=== PATIENT | female | born 1975 | race African-American/Black ===

== ENCOUNTER 2016-06-18 11:44 | Emergency (ER) | payer BC ==
[2016-06-18 12:01] VITALS: BP 100/69
--- NOTE | 2016-06-18 12:10 | UC ---
Throat Pain/Nasal Volodymyr HPI - HPI Summary HPI Summary: St starting about 4 days ago with nasal congestion and PND. Feels like ST is getting worse, also coughing up mucus. No fever or trouble breathing. - History of Current Complaint Chief Complaint: UCRespiratory Stated Complaint: SORE THROAT, AND DARK URINE Time Seen by Provider: 06/18/16 12:04 Hx Obtained From: Patient Hx Last Menstrual Period: 05/19 ?: No Onset/Duration: Gradual Onset, Lasting Days Cough: Sputum Appears - green Associated Signs & Symptoms: Positive: Nasal Discharge. Negative: Fever, Vomiting - Allergies/Home Medications Allergies/Adverse Reactions: Allergies Allergy/AdvReac Type Severity Reaction Status Date / Time Prochlorperazine Allergy Rash Verified 06/07/12 19:57 [From Compazine] Home Medications: Home Medications Biotin 1,000 mcg PO 06/18/16 [History] Calcium 250 mg PO 06/18/16 [History] Ferrous Sulfate [Iron (Ferrous Sulfate)] 50 mg PO 06/18/16 [History] Fluoxetine HCl [Prozac] 40 mg PO 06/18/16 [History] PMH/Surg Hx/FS Hx/Imm Hx Endocrine History Of: Denies: Diabetes Cardiovascular History Of: Denies: Hypertension, Pacemaker/ICD Respiratory History Of: Reports: Asthma GI/ History Of: Denies: Renal Disease - Surgical History Surgical History: Yes Surgery Procedure, Year, and Place: 3 C-SECTS, gastric bypass - Family History Known Family History: Negative: Blood Disorder - Social History Occupation: Employed Full-time Lives: With Family Alcohol Use: None Substance Use Type: None Smoking Status (MU): Never Smoked Tobacco Review of Systems Constitutional: Negative Skin: Negative Eyes: Negative ENT: Sore Throat, Nasal Discharge Respiratory: Cough Cardiovascular: Negative Gastrointestinal: Negative Genitourinary: Negative Motor: Negative Neurovascular: Negative Musculoskeletal: Negative Neurological: Negative Psychological: Negative All Other Systems Reviewed And Are Negative: Yes Physical Exam Triage Information Reviewed: Yes Appearance: Well-Appearing, No Pain Distress, Well-Nourished Vital Signs: Initial Vital Signs Temp 97.9 F 06/18/16 11:57 Pulse 73 06/18/16 11:57 Resp 18 06/18/16 11:57 BP 100/69 06/18/16 11:57 Pulse Ox 100 06/18/16 11:57 Vital Signs Reviewed: Yes Eye Exam: Normal Eyes: Positive: Conjunctiva Clear ENT: Positive: Pharynx normal, Nasal congestion, TMs normal. Negative: Tonsillar swelling Dental Exam: Normal Neck exam: Normal Neck: Positive: Supple, Nontender, No Lymphadenopathy Respiratory Exam: Normal Respiratory: Positive: Chest non-tender, Lungs clear, Normal breath sounds, No respiratory distress, No accessory muscle use Cardiovascular Exam: Normal Cardiovascular: Positive: RRR, No Murmur Musculoskeletal Exam: Normal Neurological Exam: Normal Psychological Exam: Normal Skin Exam: Normal Throat Pain/Nasal Course/Dx - Differential Dx/Diagnosis Provider Diagnoses: URI, likely viral Discharge - Discharge Plan Condition: Stable Disposition: HOME Patient Education Materials: Upper Respiratory Infection (ED) Additional Instructions: Your urine is concentrated, that's why it was dark. I recommend you try to drink extra fluids, and eat watery food such as fruit and soup.
== END 2016-06-18 12:37 | disposition home or self-care (01) ==
LOC: UCEAST 11:44
DX: J06.9 Acute upper respiratory infection, unspecified (principal); Z87.09 Personal history of other diseases of the respiratory system; Z32.02 Encounter for pregnancy test, result negative
CPT/HCPCS: 81002; 81025; 87651; 99211; G0463

== ENCOUNTER 2019-09-30 18:58 | Emergency (ER) | payer OTHER ==
[2019-09-30 19:58] LABS: ABS Eosinophils 0.2 10^3/ul (0-0.6); ABS Lymphocytes 1.4 10^3/ul (1.0-4.8); ABS Monocytes 0.2 10^3/ul (0-0.8); Eosinophil % 4.2 %; Hematocrit 38 % (35-47); Hemoglobin 12.8 g/dL (12.0-16.0); Lymphocyte % 33.6 %; Mean Corpuscular HGB Conc 34 g/dL (31-36); Mean Corpuscular Hemoglobin 31 pg (27-31); Mean Corpuscular Volume 90 fL (80-97); Mean Platelet Volume 9.8 fL (7.4-10.4); Nucleated Red Blood Cells % 0.1; Platelet Count 204 10^3/uL (150-450); Red Blood Count 4.19 10^6 /uL (3.70-4.87); Red Cell Distribution Width 13 % (10-15)
[2019-09-30 20:07] LABS: Urine Appearance Cloudy; Urine Bilirubin Negative (Negative); Urine Blood Negative (Negative); Urine Color Straw; Urine Glucose Negative (Negative); Urine Ketones Negative (Negative); Urine Nitrite Negative (Negative); Urine Protein Negative (Negative); Urine Specific Gravity 1.004 (1.010-1.030); Urine Urobilinogen Negative (Negative)
[2019-09-30 20:17] LABS: ALT 18 U/L (7-52); AST 19 U/L (13-39); Albumin/Globulin Ratio 1.2 (1-3); Alkaline Phosphatase 61 U/L (34-104); Anion Gap 8 mmol/L (2-11); BUN/Creatinine Ratio 15.7 (8-20); Blood Urea Nitrogen 13 mg/dL (6-24); CO2 Carbon Dioxide 25 mmol/L (22-32); Calcium 9.5 mg/dL (8.6-10.3); Chloride 108 mmol/L (101-111); EGFR Non-African American 74.3 (>60); Globulin 3.3 g/dL (2-4); Glucose 84 mg/dL (70-100); Potassium 3.8 mmol/L (3.5-5.0); Sodium 141 mmol/L (135-145); Total Protein 7.3 g/dL (6.4-8.9)
[2019-09-30 20:20] LABS: Urine Benzodiazepine Screen None Detected (None Detect); Urine Opiates Screen None Detected (None Detect)
[2019-09-30 20:27] LABS: Acetaminophen < 15 mcg/mL; Alcohol, S 17 mg/dL (<10); Salicylate < 2.50 mg/dL (<30)
[2019-09-30 20:42] LABS: TSH (Thyroid Stimulating Horm) 1.12 mcIU/mL (0.34-5.60)
[2019-09-30 23:08] VITALS: BP 117/74
== END 2019-09-30 22:45 | disposition home or self-care (01) ==
LOC: ED 18:58

== ENCOUNTER 2022-03-31 10:19 | Observation (INO) ==
[~2022-03-31 10:19] MED LIST: Buffered Lidocaine 1% SYRIN 1 ml INTRADERM ONE; Dexamethasone IV 4 MG/ML VIAL 1 ml VIAL IV SLOW PU ONE; Famotidine IV 10 MG/ML 2 ml VIAL (20 mg) IV ONE; Lactated Ringers 1000 ml BAG 1,000 ML IV SCH
[2022-03-31] MEDS ORDERED: Lidocaine 2% PF 5 ML VIAL ONE ×2 (10:36→11:53)
[2022-03-31] MEDS ORDERED: Famotidine IV 10 MG/ML 2 ml VIAL (20 mg) ONE (10:38)
[2022-03-31] MEDS ORDERED: ceFAZolin 2 GM PREMIX 2 GM/50 ML BAG ONE (10:38)
[2022-03-31] MEDS ORDERED: Dexamethasone IV 4 MG/ML VIAL 1 ml VIAL ONE (10:38)
[2022-03-31] MEDS ORDERED: ROPIVACAINE 5 MG/ML 30 ML BTL (0.5%) ONE (11:47)
[2022-03-31] MEDS ORDERED: fentaNYL 100 mcg/2 ml 50 MCG/ML VIAL ONE ×2 (11:48→15:38)
[2022-03-31] MEDS ORDERED: Midazolam 2 mg/2 ml VIAL 1 mg/ml 2 ml VIAL (2 mg) ONE (11:48)
[2022-03-31] MEDS ORDERED: Ropivacaine 5 MG/ML 20 ML VIAL 0.5% (100 MG) ONE (11:51)
[2022-03-31] MEDS ORDERED: Phenylephrine IV 10 MG/ML 1 ml VIAL ONE (11:53)
[2022-03-31] MEDS ORDERED: Ondansetron 4 mg VIAL 2 MG/ML 2 ml VIAL ONE (13:27)
[2022-03-31] MEDS ORDERED: Propofol 10 MG/ML 20 ML BTL ONE ×3 (13:41→14:22)
[2022-03-31] MEDS ORDERED: Morphine 4 MG/ML VIAL (1 ml) IV PRN (14:11)
[2022-03-31] MEDS ORDERED: fentaNYL 100 mcg/2 ml 50 MCG/ML VIAL IV PRN (14:11)
[2022-03-31] MEDS ORDERED: Naloxone 0.4 mg VIAL 0.4 mg/ml 1 ml VIAL IV PRN (14:11)
[2022-03-31] MEDS ORDERED: Glycopyrrolate IV 0.2 MG/ML 1 ML VIAL ONE (14:55)
[2022-03-31] MEDS ORDERED: Ondansetron ODT 4 mg TAB 4 MG TAB PO PRN (15:39)
[2022-03-31] MEDS ORDERED: Lactulose 30 ml UDC PO PRN (15:39)
[2022-03-31] MEDS ORDERED: Morphine 2 MG/ML SYRINGE IV PRN (15:39)
[2022-03-31] MEDS ORDERED: Magnesium Hydroxide LIQ 30 ML UDC PO PRN (15:39)
[2022-03-31] MEDS ORDERED: Ondansetron 4 mg VIAL 2 MG/ML 2 ml VIAL IV PRN (15:39)
[2022-03-31] MEDS ORDERED: Lactated Ringers 1000 ml BAG 1,000 ML IV SCH (16:00)
[2022-03-31] MEDS: ceFAZolin 1 GM ADVAN 1 GM in NS 0.9% 50 ML 50 ML IVPB SCH (21:33)
[2022-03-31] MEDS: Magnesium Hydroxide LIQ 30 ML UDC PO SCH (21:33)
[2022-04-01] MEDS: ceFAZolin 1 GM ADVAN 1 GM in NS 0.9% 50 ML 50 ML IVPB SCH ×2 (04:40→13:34)
[2022-04-01 06:19] LABS: Hematocrit 35 % (35-47); Hemoglobin 11.5 g/dL (12.0-16.0); Mean Platelet Volume 9.8 fL (7.4-10.4); Platelet Count 213 10^3/uL (150-450)
[2022-04-01 06:44] LABS: Lithium 1.51 mmol/L (0.6-1.2); Potassium 4.1 mmol/L (3.5-5.0)
[2022-04-01] MEDS: Magnesium Hydroxide LIQ 30 ML UDC PO SCH (08:47)
[2022-04-01] MEDS ORDERED: Lurasidone 120 mg TAB PO SCH (09:00)
[2022-04-01] MEDS ORDERED: Vitamin THERAPEUTIC TAB PO SCH (09:00)
[2022-04-01 11:28] VITALS: BP 126/82
== END 2022-04-01 15:40 | disposition home or self-care (01) ==
LOC: OR 10:19 → SSU 10:19 → EDSTATUS 11:00
PROVIDERS: ADMIT Orthopaedic Surgery Adult Reconstructive Orthopaedic Surgery; ATTEND Orthopaedic Surgery Adult Reconstructive Orthopaedic Surgery

== ENCOUNTER 2023-08-23 11:59 | Observation (INO) ==
[~2023-08-23 11:59] MED LIST changes: -Buffered Lidocaine 1% SYRIN 1 ml INTRADERM ONE; -Dexamethasone IV 4 MG/ML VIAL 1 ml VIAL IV SLOW PU ONE; -Famotidine IV 10 MG/ML 2 ml VIAL (20 mg) IV ONE; -Lactated Ringers 1000 ml BAG 1,000 ML IV SCH; +Lidocaine 2% PF 5 ML VIAL ONE; +Midazolam 2 mg/2 ml VIAL 1 mg/ml 2 ml VIAL (2 mg) ONE; +Ondansetron 4 mg VIAL 2 MG/ML 2 ml VIAL ONE; +Propofol 10 MG/ML 20 ML BTL ONE; +fentaNYL 100 mcg/2 ml 50 MCG/ML VIAL ONE
[2023-08-23] MEDS ORDERED: Famotidine IV 10 MG/ML 2 ml VIAL (20 mg) ONE (12:16)
[2023-08-23] MEDS ORDERED: ceFAZolin 2 GM PREMIX 2 GM/50 ML BAG ONE (12:16)
[2023-08-23] MEDS: Lactated Ringers 1000 ml BAG 1,000 ML IV SCH ×2 (12:45→20:09)
[2023-08-23] MEDS: Famotidine IV 10 MG/ML 2 ml VIAL (20 mg) IV ONE (12:45)
[2023-08-23 13:02] LABS: Rapid COVID-19 Molecular Undetected (Undetected)
[2023-08-23] MEDS ORDERED: ROPIVACAINE 5 MG/ML 30 ML BTL (0.5%) ONE ×2 (13:20→13:58)
[2023-08-23] MEDS ORDERED: Midazolam 2 mg/2 ml VIAL 1 mg/ml 2 ml VIAL (2 mg) ONE (14:46)
[2023-08-23] MEDS ORDERED: Tranexamic Acid 1 GM/100ML BAG 2,000 MG/200 ML BAG IV ONE (14:59)
[2023-08-23] MEDS ORDERED: Dexamethasone IV 4 MG/ML VIAL 1 ml VIAL ONE (15:55)
[2023-08-23] MEDS ORDERED: Magnesium Hydroxide LIQ 30 ML UDC PO PRN (16:04)
[2023-08-23] MEDS ORDERED: Ondansetron 4 mg VIAL 2 MG/ML 2 ml VIAL IV PRN (16:04)
[2023-08-23] MEDS ORDERED: Lactulose 30 ml UDC PO PRN (16:04)
[2023-08-23] MEDS ORDERED: Ondansetron ODT 4 mg TAB 4 MG TAB PO PRN (16:04)
[2023-08-23] MEDS ORDERED: Morphine 2 MG/ML SYRINGE IV PRN (16:04)
[2023-08-23] MEDS ORDERED: Acetaminophen IV 1 GM/100ML 1,000 MG/100 ML BAG IV ONE (16:12)
[2023-08-23] MEDS ORDERED: Propofol 10 MG/ML 20 ML BTL ONE (16:23)
[2023-08-23] MEDS: Buffered Lidocaine 1% SYRIN 1 ml INTRADERM ONE (21:16)
[2023-08-23] MEDS: CMCS:LINACLOTIDE 72 MCG CAP (NF) PO SCH (21:54)
[2023-08-23] MEDS: Magnesium Hydroxide LIQ 30 ML UDC PO SCH (21:55)
[2023-08-23] MEDS: ceFAZolin 1 GM ADVAN 1 GM in NS 0.9% 50 ML 50 ML IVPB SCH (22:06)
[2023-08-24 06:21] LABS: Hematocrit 29.5 % (35-45); Hemoglobin 9.8 g/dL (11.5-14.3); Platelet Count 213 10^3/uL (150-450)
[2023-08-24 06:41] LABS: Calcium 8.8 mg/dL (8.6-10.3); Creatinine, Serum 0.82 mg/dL (0.51-0.95); Potassium 3.8 mmol/L (3.5-5.0); eGFR CKD-EPI 87.6 (>60)
[2023-08-24] MEDS: Vitamin THERAPEUTIC TAB PO SCH (07:57)
[2023-08-24 10:39] VITALS: BP 113/79
== END 2023-08-24 14:45 | disposition home or self-care (01) ==
LOC: OR 11:59 → SSU 11:59
PROVIDERS: ADMIT Orthopaedic Surgery Adult Reconstructive Orthopaedic Surgery; ATTEND Orthopaedic Surgery Adult Reconstructive Orthopaedic Surgery